=== PATIENT | male | born 1960 | race Caucasian/White ===

== ENCOUNTER 2018-07-30 06:52 | Emergency (ER) | payer OTHER ==
[2018-07-30] MEDS ORDERED: NS(*) 0.9% 1000 ML BAG 1,000 ML IV ONE (07:32)
[2018-07-30] MEDS ORDERED: DIPHTH/TETANUS/ACEL. PERTUSSIS IM ONE (07:35)
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
[2018-07-30 08:05] LABS: PLATELET COUNT, AUTOMATED 207 K/uL (150-450)
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
--- NOTE | 2018-07-30 09:28 | RADIOLOGY IMAGING REPORT ---
FACILITY: [facility] - [place] PATIENT NAME: Jimmy Salguero : 1960 MR: [id number] V: [id number] EXAM DATE: ORDERING PHYSICIAN: KAVEH BELL TECHNOLOGIST: Location: [facility] - [place] Patient: Jimmy Salguero : 1960 Visit/Account:[id number] Date of Sevice: 07/30/2018 Technique: FACIAL BONES W/O CONTRAST HISTORY: left infraorbital ttp Comparison studies: None Technique: Axial images were obtained of the facial bones without administration of IV contrast. Won nal and sagittal reformations were obtained. One of the following dose optimization techniques was utilized in the performance of this exam: Autom ated exposure control; adjustment of the mA and/or kV according to the patient's size; or use of an i terative reconstruction technique. Specific details can be referenced in the facility's radiology CT exam operational policy. FINDINGS: There is no acute fracture. Mucoperiosteal thickening is noted within the maxillary and eth moid sinuses. The frontal and sphenoid sinuses are clear. The mastoid air cells are also unremarkable . The orbits and globes are unremarkable. Mild degenerative changes are noted within the cervical sp ine. Subcutaneous emphysema and soft tissue swelling is seen anterior to the nasal bone. No underlyin g osseous abnormality. Remaining soft tissues are unremarkable. IMPRESSION: 1. No acute osseous process. 2. Soft tissue swelling and subcutaneous emphysema along the nasal bridge. 3. Sinusitis. Report Dictated By: Frederick Durand DO at 07/30/2018 9:17 AM Report E-Signed By: Frederick Durand DO at 07/30/2018 9:24 AM WSN:[id number]
[2018-07-30 11:34] VITALS: BP 159/98
== END 2018-07-30 11:42 | disposition home or self-care (01) ==
LOC: ER 07:13
DX: S01.21XA Laceration without foreign body of nose, initial encounter (principal); S00.83XA Contusion of other part of head, initial encounter
CPT/HCPCS: 12011; 70486; 72100; 72125; 80305; 81001; 83690; 85025; 90471; 90715; 96360; 96361; 99284; J7030; 82040; 82247; 82310; 82374; 82435; 82565; 82947; 84075; 84132; 84155; 84295; 84450; 84460; 84520